=== PATIENT | female | born 1955 | race Caucasian/White ===

== ENCOUNTER 2024-04-12 18:15 | Inpatient (IN) | payer OTHER ==
[~2024-04-12] VITALS: Ht 162.6 cm; Wt 94.3 kg
[2024-04-12] MEDS ORDERED: GLIPIZIDE ER5 MG PO (18:34)
[2024-04-12] MEDS ORDERED: METFORMIN HCL1000 M3 PO (18:34)
[2024-04-12] MEDS ORDERED: COZAAR25 MG (18:34)
[2024-04-12] MEDS ORDERED: NEURONTIN300 MG (18:35)
[2024-04-12 21:09] LABS: HEMATOCRIT 40.6 % (36.0-45.00); HEMOGLOBIN 13.8 g/dL (12.0-15.00); MEAN CELL VOLUME 88.7 fL (80.00-100.00); MEAN CORPUSCULAR HEMOGLOBIN 30.1 pg (27.00-32.0); RED BLOOD COUNT 4.58 M/uL (4.00-6.00); RED CELL DISTRIBUTION WIDTH 17.2 % (11.5-14.5)
[2024-04-12 21:10] LABS: PLATELET COUNT 67 K/uL (150-450)
[2024-04-12 21:34] LABS: CALCIUM 9.5 mg/dL (8.5-10.1); CREATININE SERUM 2.16 mg/dL (0.55-1.02); GFR 22.67
[2024-04-12 21:37] LABS: POTASSIUM 6.64 mEq/L (3.5-5.1)
[2024-04-12 21:59] LABS: URINE APPEARANCE Clear; URINE BILIRRUBIN Negative (NEGATIVE); URINE BLOOD Negative; URINE COLOR Yellow; URINE GLUCOSE Negative (NEGATIVE); URINE KETONE Negative (NEGATIVE); URINE LEUKOCYTE Trace; URINE NITRATE Negative; URINE PROTEIN Negative (NEGATIVE); URINE UROBILINOGEN 0.2 E.U./dl
[2024-04-12 22:02] LABS: URINE BACTERIA 418.2 uL (0.0-1933); URINE RBC 6.2 uL (0.0-20.8)
[2024-04-12] MEDS ORDERED: SODIUM POLYSTYRENE SULFONATE 30G/8 TSP PO STA (22:08)
[2024-04-12] MEDS ORDERED: 0.9 % SODIUM CHLORIDE 1,000 ML IV STA (22:47)
[2024-04-12] MEDS ORDERED: CEFTRIAXONE SODIUM 2,000 MG in 0.9 % SODIUM CHLORIDE 100 ML IV SCH (23:26)
[2024-04-12] MEDS ORDERED: INSULIN LISPRO 1,000 UNIT/10 ML UNITS SUBCUTANEO PRN (23:30)
[2024-04-12] MEDS ORDERED: ACETAMINOPHEN 500 MG GEL..CAP PO PRN (23:30)
[2024-04-12] MEDS ORDERED: ONDANSETRON HCL 4 MG in 0.9 % SODIUM CHLORIDE 50 ML IV PRN (23:30)
[2024-04-12] MEDS ORDERED: DEXTROSE 50 % IN WATER 0.5 G/ML DISP.SYRIN IV PRN (23:30)
[2024-04-12] MEDS ORDERED: 0.9 % SODIUM CHLORIDE 1,000 ML IV SCH (23:30)
[2024-04-12] MEDS ORDERED: CEFTRIAXONE SODIUM 2,000 MG in 0.9 % SODIUM CHLORIDE 100 ML IV ONE (23:30)
[2024-04-12] MEDS ORDERED: CEFTRIAXONE SODIUM 2,000 MG VIAL ONE (23:56)
[2024-04-13] MEDS ORDERED: SODIUM POLYSTYRENE SULFONATE 30G/8 TSP PO SCH (01:00)
[2024-04-13 01:43] VITALS: BP 105/67; O2SAT 100
[2024-04-13 02:23] LABS: INR 1.21; PARTIAL THROMBOPLASTIN TIME 26.9 SECONDS (22.0-34.0)
[2024-04-13 03:50] VITALS: BP 98/63; O2SAT 96
[2024-04-13 07:10] LABS: ALBUMIN 2.5 gm/dL (3.4-5.0); BILIRUBIN TOTAL 0.76 mg/dL (0.3-1.2); BILIRUBIN,CONJUGATED 0.34 mg/dL (0.0-0.2); BILIRUBIN,UNCONJUGATED 0.42 mg/dL (0.0-0.6); CALCIUM 8.8 mg/dL (8.5-10.1); CHOL HDL RATIO 1.9 (0-5.0); CREATININE SERUM 1.8 mg/dL (0.55-1.02); GFR 27.98; GLOBULINA 3.4 G/DL (2.4-3.5); TOTAL PROTEIN 5.9 gm/dL (6.4-8.2)
[2024-04-13 07:12] LABS: POTASSIUM 5.89 mEq/L (3.5-5.1); TSH 1.61 uIU/mL (0.358-3.74)
[2024-04-13 08:51] VITALS: BP 118/77; O2SAT 97
[2024-04-13] MEDS ORDERED: SODIUM POLYSTYRENE SULFONATE 15 G/4 TSP TSP PO SCH (09:00)
[2024-04-13] MEDS ORDERED: ENOXAPARIN SODIUM 30 MG/0.3 ML SYRINGE SUBCUTANEO SCH (09:00)
[2024-04-13] MEDS ORDERED: FAMOTIDINE/PF 20 MG in 0.9 % SODIUM CHLORIDE 8 ML IV PUSH SCH (09:00)
[2024-04-13] MEDS ORDERED: PANTOPRAZOLE SODIUM 40 MG/VIAL VIAL IV SCH (09:00)
[2024-04-13] MEDS ORDERED: GABAPENTIN 800 MG TABLET PO SCH (09:00)
[2024-04-13] MEDS ORDERED: RINGERS SOLUTION,LACTATED 1,000 ML IV SCH (11:00)
[2024-04-13] MEDS ORDERED: DEXTROSE 5 % AND 0.9 % NACL 1,000 ML IV SCH ×2 (15:15)
[2024-04-13 17:40] VITALS: BP 145/72; O2SAT 98
[2024-04-14 01:51] VITALS: BP 101/67; O2SAT 99
[2024-04-14 08:11] LABS: HEMATOCRIT 37.7 % (36.0-45.00); HEMOGLOBIN 12.6 g/dL (12.0-15.00); MEAN CELL VOLUME 89.9 fL (80.00-100.00); MEAN CORPUSCULAR HGB CONC 33.4 g/dl (32.0-36.0); RED BLOOD COUNT 4.19 M/uL (4.00-6.00); RED CELL DISTRIBUTION WIDTH 17.1 % (11.5-14.5)
[2024-04-14 08:27] LABS: PLATELET COUNT 66 K/uL (150-450)
[2024-04-14 08:32] LABS: ALBUMIN 2.5 gm/dL (3.4-5.0); BILIRUBIN TOTAL 0.73 mg/dL (0.3-1.2); CALCIUM 8.7 mg/dL (8.5-10.1); CREATININE SERUM 1.48 mg/dL (0.55-1.02); GFR 35.07; GLOBULINA 3.6 G/DL (2.4-3.5); POTASSIUM 5.9 mEq/L (3.5-5.1); TOTAL PROTEIN 6.1 gm/dL (6.4-8.2)
[2024-04-14 08:33] LABS: CHOL HDL RATIO 2.2 (0-5.0)
[2024-04-14 09:15] VITALS: BP 113/63; O2SAT 99
[2024-04-14] MEDS ORDERED: LACTULOSE 20 G/30 ML BLIST.PACK PO SCH (17:00)
[2024-04-14 17:43] VITALS: BP 136/75; O2SAT 97
[2024-04-15 01:11] VITALS: BP 135/65; O2SAT 98
[2024-04-15 07:31] LABS: CREATININE SERUM 1.04 mg/dL (0.55-1.02); GFR 52.7; POTASSIUM 4.68 mEq/L (3.5-5.1)
[2024-04-15 09:00] VITALS: BP 157/80; O2SAT 97
[2024-04-15 17:25] VITALS: BP 130/73; O2SAT 97
[2024-04-15 18:55] LABS: FERRITIN 98.4 NG/ML (8-252)
[2024-04-15 19:07] LABS: URIC ACID 6.9 mg/dL (2.5-7.5)
[2024-04-16 01:19] VITALS: BP 120/68; O2SAT 100
[2024-04-16 06:45] LABS: HEMATOCRIT 34.4 % (36.0-45.00); HEMOGLOBIN 11.7 g/dL (12.0-15.00); MEAN CORPUSCULAR HEMOGLOBIN 30.5 pg (27.00-32.0); MEAN CORPUSCULAR HGB CONC 33.9 g/dl (32.0-36.0); RED BLOOD COUNT 3.82 M/uL (4.00-6.00); RED CELL DISTRIBUTION WIDTH 17.2 % (11.5-14.5)
[2024-04-16 06:49] LABS: ALBUMIN 2.3 gm/dL (3.4-5.0); BILIRUBIN TOTAL 1.02 mg/dL (0.3-1.2); CALCIUM 8.1 mg/dL (8.5-10.1); CREATININE SERUM 0.97 mg/dL (0.55-1.02); GFR 57.11; GLOBULINA 2.9 G/DL (2.4-3.5); MAGNESIUM 1.5 mg/dL (1.8-2.4); POTASSIUM 4.04 mEq/L (3.5-5.1); TOTAL PROTEIN 5.2 gm/dL (6.4-8.2)
[2024-04-16 07:02] LABS: PLATELET COUNT 51 K/uL (150-450)
[2024-04-16 08:41] VITALS: BP 129/70; O2SAT 98
[2024-04-16] MEDS ORDERED: MAGNESIUM SULFATE IN WATER 50 ML IV NR (13:00)
[2024-04-16] MEDS ORDERED: AMINO ACIDS 1 EACH TABLET PO SCH (13:00)
[2024-04-16] MEDS ORDERED: FERREX 150 FOR1 EAC1 PO (13:50)
[2024-04-16] MEDS ORDERED: GABAPENTIN800 MG PO (13:50)
[2024-04-17] MEDS ORDERED: IRON/V.C/V.B12/FOLIC A/VIT. E 1 CAPL CAPLET PO SCH (09:00)
[2024-04-17] MEDS ORDERED: MAGNESIUM CHLORIDE 70 MG TABLET.DR PO SCH (09:00)
[2024-04-18 12:09] LABS: HEPATITIS B CORE IGG Negative (Negative); HEPATITIS B CORE IGM Negative (Negative); HEPATITIS B SURFACE ANTIBODY Non Reactive (.); HEPATITIS C VIRUS ANTIBODY Non Reactive (Non Reactive)
== END 2024-04-16 14:47 | disposition home or self-care (01) | DRG 684 ==
LOC: ER 18:15 → MEDI 23:28
PROVIDERS: Emergency Medicine; General Practice; Internal Medicine; Internal Medicine Infectious Disease; Internal Medicine Nephrology; ADMIT Internal Medicine; ATTEND Internal Medicine
PROC: BW21ZZZ Computerized Tomography (CT Scan) of Abdomen and Pelvis (ICD-10-PCS; principal; 2024-04-12)
PROC: BW40ZZZ Ultrasonography of Abdomen (ICD-10-PCS; 2024-04-15)
DX: N17.9 Acute kidney failure, unspecified (principal); E87.5 Hyperkalemia; D69.6 Thrombocytopenia, unspecified; E11.9 Type 2 diabetes mellitus without complications; Z79.4 Long term (current) use of insulin

== ENCOUNTER 2024-09-06 10:48 | Outpatient (CLI) | payer OTHER | END 2024-09-06 10:57 | disposition home or self-care (01) | LOC: RAD 10:48 | PROVIDERS: ATTEND Orthopaedic Surgery | DX: M54.50 Low back pain, unspecified (principal); S42.224A 2-part nondisplaced fracture of surgical neck of right humerus, initial encounter for closed fracture; X58.XXXA Exposure to other specified factors, initial encounter; Y93.9 Activity, unspecified; Y92.9 Unspecified place or not applicable; Y99.9 Unspecified external cause status ==

== ENCOUNTER → 2024-09-06 | Emergency (ER) | payer OTHER ==
[~2024-09-06] MED LIST: COZAAR25 MG; FERREX 150 FOR1 EAC1 PO; GABAPENTIN800 MG PO; GLIPIZIDE ER5 MG PO; METFORMIN HCL1000 M3 PO; NEURONTIN300 MG
== END | disposition home or self-care (01) ==
LOC: ER 10:15
DX: S42.211A Unspecified displaced fracture of surgical neck of right humerus, initial encounter for closed fracture (principal); W18.39XA Other fall on same level, initial encounter; Y93.89 Activity, other specified; Y92.89 Other specified places as the place of occurrence of the external cause; I10 Essential (primary) hypertension; N20.0 Calculus of kidney

== ENCOUNTER → 2024-09-07 08:04 | Outpatient (CLI) | payer OTHER ==
[2024-09-07 09:02] LABS: MEAN CELL VOLUME 96.2 fL (80.00-100.00); MEAN CORPUSCULAR HGB CONC 32.8 g/dl (32.0-36.0); RED BLOOD COUNT 3.12 M/uL (4.00-6.00); RED CELL DISTRIBUTION WIDTH 14.7 % (11.5-14.5)
[2024-09-07 09:10] LABS: PLATELET COUNT 62 K/uL (150-450)
[2024-09-07 09:13] LABS: INR 1.19; PARTIAL THROMBOPLASTIN TIME 33.7 SECONDS (22.0-34.0); PROTHROMBIN TIME 12.8 SECONDS (9.0-11.5)
[2024-09-07 09:16] LABS: PH,URINE 5.5 (5.0-8.0); URINE APPEARANCE Cloudy; URINE BILIRRUBIN Negative (NEGATIVE); URINE BLOOD Moderate; URINE COLOR Dark Yellow; URINE GLUCOSE Negative (NEGATIVE); URINE KETONE Negative (NEGATIVE); URINE LEUKOCYTE Large; URINE NITRATE Positive; URINE PROTEIN Trace (NEGATIVE)
[2024-09-07 09:19] LABS: URINE EPITHELIAL CELLS 19.9 uL (0.0-38.8); URINE RBC 74.8 uL (0.0-20.8); URINE WBC 3295.6 uL (0.0-23.2)
[2024-09-07 09:22] LABS: ALBUMIN 2.8 gm/dL (3.4-5.0); BILIRUBIN TOTAL 1.1 mg/dL (0.3-1.2); CALCIUM 8.9 mg/dL (8.5-10.1); CREATININE SERUM 1.93 mg/dL (0.55-1.02); GFR 25.82; GLOBULINA 3.8 G/DL (2.4-3.5); TOTAL PROTEIN 6.6 gm/dL (6.4-8.2)
[2024-09-07 09:32] LABS: URINE BACTERIA > 9821.5 uL (0.0-1933); URINE CAST 1.17 uL (0.0-1.40)
[2024-09-07 10:08] LABS: COL ADP >300 SECONDS (56-102)
[2024-09-07 10:12] LABS: COL EPI >271 SECONDS (82-175)
[2024-09-07 10:29] LABS: POTASSIUM 6.51 mEq/L (3.5-5.1)
== END | disposition home or self-care (01) ==
LOC: EKG 08:04 → LAB 08:04
PROVIDERS: ATTEND Orthopaedic Surgery
DX: E56.1 Deficiency of vitamin K (principal); D64.9 Anemia, unspecified; E88.89 Other specified metabolic disorders; N39.0 Urinary tract infection, site not specified; Z22.322 Carrier or suspected carrier of Methicillin resistant Staphylococcus aureus; E11.9 Type 2 diabetes mellitus without complications; I10 Essential (primary) hypertension

== ENCOUNTER 2024-09-07 09:21 | Outpatient (CLI) | payer OTHER | END 2024-09-07 09:34 | disposition home or self-care (01) | LOC: TOM 09:21 | PROVIDERS: ATTEND Orthopaedic Surgery | DX: M54.50 Low back pain, unspecified (principal) ==

== ENCOUNTER 2024-09-07 16:28 | Inpatient (IN) | payer OTHER ==
[~2024-09-07] VITALS: Ht 162.6 cm; Wt 92.1 kg
--- NOTE | 2024-09-07 16:46 | NUR ---
PTE ALERTA,ESTABLE Y ORIENTADA.ESTA LLEGA CON REFERIDO DEL DR.COLLAZO SCHAFER POR FRACTURA EN EL HOMBRO DERECHO.
[2024-09-07] MEDS ORDERED: CALCIUM GLUCONATE 100 MG/ML VIAL IV ONE (17:45)
[2024-09-07] MEDS ORDERED: CALCIUM GLUCONATE 100 MG/ML VIAL ONE (17:52)
[2024-09-07] MEDS ORDERED: TRAMADOL HCL 50 MG TABLET PO ONE (18:00)
--- NOTE | 2024-09-07 18:42 | NUR ---
SE ORIENTA PTE SOBRE TX MEDICO EL CUAL REFIERE ENTENDER.SE LE EXTRAEN MUESTRAS BAJO MEDIDAS ASEPTICAS,SE CANALIZA Y SE ADMINISTRAN MEDICAMENTOS [facility]DEN MEDICA.
[2024-09-07 18:51] LABS: HEMOGLOBIN 10.9 g/dL (12.0-15.00); MEAN CELL VOLUME 94.5 fL (80.00-100.00); MEAN CORPUSCULAR HGB CONC 33.9 g/dl (32.0-36.0); PLATELET COUNT 77 K/uL (150-450); RED BLOOD COUNT 3.39 M/uL (4.00-6.00); RED CELL DISTRIBUTION WIDTH 15.2 % (11.5-14.5)
[2024-09-07 18:59] LABS: INR 1.12; PARTIAL THROMBOPLASTIN TIME 31.5 SECONDS (22.0-34.0); PROTHROMBIN TIME 12.1 SECONDS (9.0-11.5)
[2024-09-07 19:04] LABS: ALBUMIN 3.1 gm/dL (3.4-5.0); BILIRUBIN TOTAL 1.26 mg/dL (0.3-1.2); CALCIUM 8.7 mg/dL (8.5-10.1); CREATININE SERUM 2.06 mg/dL (0.55-1.02); GFR 23.95; GLOBULINA 3.8 G/DL (2.4-3.5); MAGNESIUM 1.8 mg/dL (1.8-2.4); PHOSPHOROUS 4.8 mg/dL (2.5-4.9); TOTAL PROTEIN 6.9 gm/dL (6.4-8.2)
[2024-09-07 19:19] LABS: POTASSIUM 6.07 mEq/L (3.5-5.1)
[2024-09-07] MEDS ORDERED: SODIUM POLYSTYRENE SULFONATE 30G/8 TSP PO STA (21:25)
[2024-09-07] MEDS ORDERED: DEXTROSE 50 % IN WATER 0.5 G/ML DISP.SYRIN IV PRN (21:30)
[2024-09-07] MEDS ORDERED: INSULIN LISPRO 1,000 UNIT/10 ML UNITS SUBCUTANEO PRN (21:30)
[2024-09-07] MEDS ORDERED: 0.9 % SODIUM CHLORIDE 1,000 ML IV SCH (21:30)
[2024-09-07] MEDS ORDERED: FUROsemide 20 MG/2 ML VIAL IV PRN (21:30)
[2024-09-07] MEDS ORDERED: ENALAPRILAT DIHYDRATE 1.25 MG/ML VIAL IV PRN (22:00)
[2024-09-07] MEDS ORDERED: MORPHINE SULFATE 2 MG/ML CARTRIDGE IV PRN (22:00)
[2024-09-07 23:30] VITALS: BP 126/68; O2SAT 100
[2024-09-08] MEDS ORDERED: SODIUM POLYSTYRENE SULFONATE 30G/8 TSP PO SCH (01:00)
[2024-09-08 02:24] LABS: PH,URINE 5.5 (5.0-8.0); URINE APPEARANCE Turbid; URINE BILIRRUBIN Negative (NEGATIVE); URINE BLOOD Small; URINE COLOR Yellow; URINE GLUCOSE Negative (NEGATIVE); URINE KETONE Negative (NEGATIVE); URINE LEUKOCYTE Large; URINE NITRATE Positive; URINE PROTEIN Trace (NEGATIVE)
[2024-09-08 02:27] LABS: URINE EPITHELIAL CELLS 11.2 uL (0.0-38.8); URINE RBC 30.1 uL (0.0-20.8); URINE WBC 3124.6 uL (0.0-23.2)
[2024-09-08 02:48] LABS: URINE BACTERIA > 9821.5 uL (0.0-1933); URINE CAST 0.29 uL (0.0-1.40)
[2024-09-08 04:14] VITALS: BP 116/44; O2SAT 100
[2024-09-08 07:35] LABS: HEMATOCRIT 29.9 % (36.0-45.00); HEMOGLOBIN 10.3 g/dL (12.0-15.00); MEAN CORPUSCULAR HEMOGLOBIN 32.8 pg (27.00-32.0); MEAN CORPUSCULAR HGB CONC 34.5 g/dl (32.0-36.0); RED BLOOD COUNT 3.15 M/uL (4.00-6.00); RED CELL DISTRIBUTION WIDTH 15.2 % (11.5-14.5)
[2024-09-08 07:43] LABS: PLATELET COUNT 63 K/uL (150-450)
[2024-09-08 07:52] LABS: BILIRUBIN TOTAL 1.22 mg/dL (0.3-1.2); CREATININE SERUM 1.91 mg/dL (0.55-1.02); GFR 26.13; GLOBULINA 3.5 G/DL (2.4-3.5); MAGNESIUM 1.8 mg/dL (1.8-2.4); TOTAL PROTEIN 6.5 gm/dL (6.4-8.2)
[2024-09-08 08:00] VITALS: BP 119/71
[2024-09-08 09:00] LABS: POTASSIUM 6.61 mEq/L (3.5-5.1)
[2024-09-08] MEDS ORDERED: PANTOPRAZOLE SODIUM 40 MG/VIAL VIAL IV SCH (09:00)
[2024-09-08] MEDS ORDERED: SODIUM POLYSTYRENE SULFONATE 30G/8 TSP PO NR (10:00)
[2024-09-08] MEDS ORDERED: CALCIUM GLUCONATE 100 MG/ML VIAL IV STA (11:16)
[2024-09-08] MEDS ORDERED: INSULIN REGULAR, HUMAN 1,000 UNIT/10 ML UNITS IV STA (11:17)
[2024-09-08] MEDS ORDERED: DEXTROSE 50 % IN WATER 0.5 G/ML VIAL IV STA (11:18)
[2024-09-08] MEDS ORDERED: ALBUTEROL SULFATE 0.5 ML/2.5 MG SOLUTION IH ONE (11:45)
[2024-09-08] MEDS ORDERED: CEFTRIAXONE SODIUM 2,000 MG VIAL IV SCH (12:00)
[2024-09-08] MEDS ORDERED: ALBUTEROL SULFATE 3 ML/2.5 MG AMPUL.NEB IH ONE (13:34)
[2024-09-08 16:56] VITALS: BP 98/50; O2SAT 97
[2024-09-08] MEDS ORDERED: SODIUM POLYSTYRENE SULFONATE 15 G/4 TSP TSP PO SCH (17:00)
[2024-09-09] VITALS: BP 126/55; O2SAT 100
[2024-09-09 08:00] VITALS: BP 144/73; O2SAT 99
[2024-09-09] MEDS ORDERED: CHLORHEXIDINE GLUCONATE 240 ML BOTTLE TOP SCH (13:04)
[2024-09-09 13:43] LABS: ABG PH 7.345 (7.35-7.45); ABG PO2 121.6 mmHg (80-100); ABG pCO2 25.1 mmHg (35-45); BASE EXCESS -10.3 mmol/l; BICARBONATE 13.4 mmol/l (23-25); SaO2 98.3 %; Tco2 14.2 mmol/l
[2024-09-09 15:11] LABS: HEMATOCRIT 30.4 % (36.0-45.00); HEMOGLOBIN 10.4 g/dL (12.0-15.00); MEAN CELL VOLUME 94.3 fL (80.00-100.00); MEAN CORPUSCULAR HEMOGLOBIN 32.3 pg (27.00-32.0); MEAN CORPUSCULAR HGB CONC 34.3 g/dl (32.0-36.0); RED BLOOD COUNT 3.22 M/uL (4.00-6.00); RED CELL DISTRIBUTION WIDTH 14.6 % (11.5-14.5)
[2024-09-09 15:20] LABS: PLATELET COUNT 97 K/uL (150-450)
[2024-09-09 15:27] LABS: ERYTHROCYTE SEDIMENTATION RATE 71 mm/hr
[2024-09-09 15:33] LABS: ALBUMIN 2.7 gm/dL (3.4-5.0); CALCIUM 8.6 mg/dL (8.5-10.1); CREATININE SERUM 1.62 mg/dL (0.55-1.02); GFR 31.6; GLOBULINA 3.4 G/DL (2.4-3.5); MAGNESIUM 1.6 mg/dL (1.8-2.4); PHOSPHOROUS 3.6 mg/dL (2.5-4.9); POTASSIUM 5.87 mEq/L (3.5-5.1); TOTAL PROTEIN 6.1 gm/dL (6.4-8.2)
[2024-09-09 15:34] LABS: o2 21 %
[2024-09-09 15:35] LABS: allen test SATISFACTORY; puncture site RADIAL LEFT
[2024-09-09] MEDS ORDERED: SODIUM POLYSTYRENE SULFONATE 30G/8 TSP PO STA (15:55)
[2024-09-09] MEDS ORDERED: DILTIAZEM HCL 120 MG TABLET PO NR (16:00)
[2024-09-09 16:38] VITALS: BP 129/63; O2SAT 98
[2024-09-09] MEDS ORDERED: EMOLLIENTS 6 OZ BOTTLE TOP SCH (17:00)
[2024-09-10] VITALS: BP 104/50; O2SAT 100
[2024-09-10 07:00] LABS: HEMATOCRIT 32.7 % (36.0-45.00); HEMOGLOBIN 10.9 g/dL (12.0-15.00); MEAN CELL VOLUME 93.4 fL (80.00-100.00); MEAN CORPUSCULAR HEMOGLOBIN 31.3 pg (27.00-32.0); MEAN CORPUSCULAR HGB CONC 33.5 g/dl (32.0-36.0)
[2024-09-10 07:23] LABS: PLATELET COUNT 88 K/uL (150-450)
[2024-09-10 07:26] LABS: ALBUMIN 2.5 gm/dL (3.4-5.0); BILIRUBIN TOTAL 1.76 mg/dL (0.3-1.2); CALCIUM 8.7 mg/dL (8.5-10.1); CREATININE SERUM 1.29 mg/dL (0.55-1.02); GFR 41.1; GLOBULINA 3.2 G/DL (2.4-3.5); MAGNESIUM 1.8 mg/dL (1.8-2.4); PHOSPHOROUS 3.3 mg/dL (2.5-4.9); TOTAL PROTEIN 5.7 gm/dL (6.4-8.2)
[2024-09-10 07:29] LABS: POTASSIUM 5.21 mEq/L (3.5-5.1)
[2024-09-10 08:39] VITALS: BP 129/65; O2SAT 98
[2024-09-10] MEDS ORDERED: CHLORHEXIDINE GLUCONATE 120 ML BOTTLE TOP SCH (09:00)
[2024-09-10] MEDS ORDERED: DILTIAZEM HCL 120 MG TABLET PO SCH ×2 (09:00)
[2024-09-10 17:08] VITALS: BP 110/63; O2SAT 100
[2024-09-10 19:11] LABS: PH,URINE 5.5 (5.0-8.0); URINE APPEARANCE Clear; URINE BILIRRUBIN Negative (NEGATIVE); URINE BLOOD Moderate; URINE COLOR Yellow; URINE GLUCOSE Negative (NEGATIVE); URINE KETONE 15 (NEGATIVE); URINE LEUKOCYTE Moderate; URINE NITRATE Negative; URINE PROTEIN 30 (NEGATIVE)
[2024-09-10 19:12] LABS: URINE BACTERIA 149.3 uL (0.0-1933); URINE EPITHELIAL CELLS 2.6 uL (0.0-38.8); URINE RBC 261.3 uL (0.0-20.8); URINE WBC 634.1 uL (0.0-23.2)
[2024-09-10 19:14] LABS: URINE CAST 0.14 uL (0.0-1.40)
[2024-09-11 00:30] VITALS: BP 138/77; O2SAT 96
[2024-09-11 08:00] VITALS: BP 119/73; O2SAT 97
[2024-09-11 08:19] LABS: MEAN CELL VOLUME 91.6 fL (80.00-100.00); RED BLOOD COUNT 3.28 M/uL (4.00-6.00); RED CELL DISTRIBUTION WIDTH 15.6 % (11.5-14.5)
[2024-09-11 08:22] LABS: HEMOGLOBIN 10.5 g/dL (12.0-15.00)
[2024-09-11 09:10] LABS: PLATELET COUNT 83 K/uL (150-450)
[2024-09-11] MEDS ORDERED: CEFTRIAXONE SODIUM 2,000 MG VIAL IV ONE (13:30)
[2024-09-11] MEDS ORDERED: BUPIVACAINE HCL 30 ML VIAL IJ ONE (13:30)
[2024-09-11] MEDS ORDERED: TRANEXAMIC ACID 100MG/1ML (1000MG) AMPUL IV ONE ×2 (13:30)
[2024-09-11] MEDS ORDERED: MORPHINE SULFATE 4 MG/ML VIAL IV ONE (14:50)
[2024-09-11 18:55] VITALS: BP 147/81; O2SAT 95
[2024-09-11 19:19] LABS: COL EPI 122 SECONDS (82-175)
[2024-09-12 00:05] VITALS: BP 141/77; O2SAT 96
[2024-09-12 08:00] VITALS: BP 111/73; O2SAT 99
[2024-09-12] MEDS ORDERED: DILTIAZEM HCL 120 MG CAP.SR.24H PO SCH (09:00)
[2024-09-12 09:01] LABS: HEMATOCRIT 34.4 % (36.0-45.00); HEMOGLOBIN 11.2 g/dL (12.0-15.00); MEAN CELL VOLUME 95.5 fL (80.00-100.00); MEAN CORPUSCULAR HEMOGLOBIN 31.1 pg (27.00-32.0); MEAN CORPUSCULAR HGB CONC 32.6 g/dl (32.0-36.0); RED CELL DISTRIBUTION WIDTH 15.8 % (11.5-14.5)
[2024-09-12 09:41] LABS: PLATELET COUNT 98 K/uL (150-450)
[2024-09-12 18:49] VITALS: BP 129/72; O2SAT 96
[2024-09-13 00:47] VITALS: BP 114/62; O2SAT 95
[2024-09-13 07:53] LABS: ALBUMIN 2.2 gm/dL (3.4-5.0); BILIRUBIN TOTAL 1.16 mg/dL (0.3-1.2); CALCIUM 8.5 mg/dL (8.5-10.1); CREATININE SERUM 0.93 mg/dL (0.55-1.02); GFR 59.95; GLOBULINA 3.1 G/DL (2.4-3.5); POTASSIUM 4.37 mEq/L (3.5-5.1); TOTAL PROTEIN 5.3 gm/dL (6.4-8.2)
[2024-09-13 08:00] VITALS: BP 132/80; O2SAT 95
[2024-09-13 08:18] LABS: HEMATOCRIT 31.8 % (36.0-45.00); HEMOGLOBIN 10.6 g/dL (12.0-15.00); MEAN CORPUSCULAR HEMOGLOBIN 31.5 pg (27.00-32.0); MEAN CORPUSCULAR HGB CONC 33.2 g/dl (32.0-36.0); RED BLOOD COUNT 3.35 M/uL (4.00-6.00); RED CELL DISTRIBUTION WIDTH 15.4 % (11.5-14.5)
[2024-09-13] MEDS ORDERED: PANTOPRAZOLE SODIUM 40 MG TABLET.DR PO SCH (09:00)
[2024-09-13 09:09] LABS: PLATELET COUNT 85 K/uL (150-450)
[2024-09-13] MEDS ORDERED: OxyCODONE HCL/APAP UD (PERCOCET) PO PRN (10:30)
[2024-09-13 16:00] VITALS: BP 113/64; O2SAT 98
[2024-09-13] MEDS ORDERED: DOCUSATE SODIUM 100MG CAP PO SCH (17:00)
[2024-09-13] MEDS ORDERED: DILTIAZEM ER120 M2 PO (17:12)
[2024-09-13] MEDS ORDERED: OXYC1TAB9 PO (17:12)
[2024-09-13] MEDS ORDERED: INTEGRA PLUS C1 EACH PO (17:13)
[2024-09-13] MEDS ORDERED: GLUMETZA1000 MG PO (17:13)
[2024-09-13] MEDS ORDERED: DOCUSATE CALCI240 MG PO (17:13)
[2024-09-13] MEDS ORDERED: COZAAR50 MG PO (17:14)
== END 2024-09-13 19:07 | disposition home or self-care (01) | DRG 493 ==
LOC: ER 16:30 → SURG 22:06 → SURH 22:06 → SURG 23:35 → SURH 09-08 15:21
PROVIDERS: General Practice; Internal Medicine Infectious Disease; Orthopaedic Surgery; ADMIT Internal Medicine; ATTEND Internal Medicine
PROC: 30233R1 Transfusion of Nonautologous Platelets into Peripheral Vein, Percutaneous Approach (ICD-10-PCS; 2024-09-08)
PROC: 30233N1 Transfusion of Nonautologous Red Blood Cells into Peripheral Vein, Percutaneous Approach (ICD-10-PCS; 2024-09-09)
PROC: 0PSC06Z Reposition Right Humeral Head with Intramedullary Internal Fixation Device, Open Approach (ICD-10-PCS; principal; 2024-09-12)
DX: S42.291A Other displaced fracture of upper end of right humerus, initial encounter for closed fracture (principal); D61.818 Other pancytopenia; N17.9 Acute kidney failure, unspecified; N39.0 Urinary tract infection, site not specified; E87.5 Hyperkalemia; D69.6 Thrombocytopenia, unspecified; S80.01XA Contusion of right knee, initial encounter; E11.65 Type 2 diabetes mellitus with hyperglycemia; E11.622 Type 2 diabetes mellitus with other skin ulcer; D72.819 Decreased white blood cell count, unspecified; I12.9 Hypertensive chronic kidney disease with stage 1 through stage 4 chronic kidney disease, or unspecified chronic kidney disease; E11.22 Type 2 diabetes mellitus with diabetic chronic kidney disease; N18.32 Chronic kidney disease, stage 3b; Z79.84 Long term (current) use of oral hypoglycemic drugs; B96.1 Klebsiella pneumoniae [K. pneumoniae] as the cause of diseases classified elsewhere; W19.XXXA Unspecified fall, initial encounter; Y92.9 Unspecified place or not applicable

== ENCOUNTER 2024-09-15 15:49 | Inpatient (IN) | payer OTHER ==
[~2024-09-15] VITALS: Ht 162.6 cm; Wt 94.8 kg
[~2024-09-15 15:49] MED LIST changes: +COZAAR50 MG PO; +DILTIAZEM ER120 M2 PO; +DOCUSATE CALCI240 MG PO; +GLUMETZA1000 MG PO; +INTEGRA PLUS C1 EACH PO; +OXYC1TAB9 PO
--- NOTE | 2024-09-15 16:00 | NUR ---
SE RECIBE PTE ALERTA Y ORIENTADA X3 EN AMBULANCIA EN COMPANIA DE FAMILIAR Y PAREMDICOS. LA MISMO REFIERE QUE JULIANNE FUE PARA EL JAMEE Y SE DESLIZO HASTA LLEGAR AL PISO Y HOY ESTA PRESENTADO DOLOR EL PIERNA DERECHA. SE MIDEN S/V Y SE UBICA.
--- NOTE | 2024-09-15 17:15 | NUR ---
SE NOTIFICAN XRAY PENDIENTE.
[2024-09-15] MEDS ORDERED: MEPERIDINE HCL 25 MG/ML AMPUL IV ONE (19:00)
[2024-09-15] MEDS ORDERED: GABAPENTIN 300 MG CAPSULE PO SCH (22:09)
[2024-09-15] MEDS ORDERED: 0.9 % SODIUM CHLORIDE 1,000 ML IV SCH (22:15)
[2024-09-15] MEDS ORDERED: DEXTROSE 50 % IN WATER 0.5 G/ML DISP.SYRIN IV PRN (22:15)
[2024-09-15] MEDS ORDERED: INSULIN LISPRO 1,000 UNIT/10 ML UNITS SUBCUTANEO PRN ×2 (22:15)
[2024-09-15] MEDS ORDERED: MORPHINE SULFATE 4 MG/ML CARTRIDGE IV PRN (22:15)
[2024-09-15] MEDS ORDERED: ACETAMINOPHEN 500 MG GEL..CAP PO PRN (23:00)
[2024-09-16 01:36] LABS: HEMATOCRIT 29.7 % (36.0-45.00); HEMOGLOBIN 10.3 g/dL (12.0-15.00); MEAN CELL VOLUME 93.6 fL (80.00-100.00); MEAN CORPUSCULAR HEMOGLOBIN 32.5 pg (27.00-32.0); MEAN CORPUSCULAR HGB CONC 34.7 g/dl (32.0-36.0); RED BLOOD COUNT 3.18 M/uL (4.00-6.00); RED CELL DISTRIBUTION WIDTH 15.6 % (11.5-14.5)
[2024-09-16 01:37] LABS: PLATELET COUNT 61 K/uL (150-450)
[2024-09-16 01:58] LABS: INR 1.3; PARTIAL THROMBOPLASTIN TIME 28.6 SECONDS (22.0-34.0); PROTHROMBIN TIME 13.9 SECONDS (9.0-11.5)
[2024-09-16 02:05] LABS: URINE APPEARANCE Clear; URINE BILIRRUBIN Negative (NEGATIVE); URINE BLOOD Negative; URINE COLOR Dark Yellow; URINE GLUCOSE Negative (NEGATIVE); URINE KETONE 15 (NEGATIVE); URINE LEUKOCYTE Small; URINE NITRATE Negative; URINE PROTEIN Trace (NEGATIVE)
[2024-09-16 02:09] LABS: URINE BACTERIA 70.9 uL (0.0-1933); URINE EPITHELIAL CELLS 35.1 uL (0.0-38.8); URINE RBC 13.9 uL (0.0-20.8); URINE WBC 56.8 uL (0.0-23.2)
[2024-09-16 02:15] LABS: URINE CAST 1.32 uL (0.0-1.40)
[2024-09-16 02:24] LABS: ALBUMIN 2.2 gm/dL (3.4-5.0); BILIRUBIN TOTAL 1.59 mg/dL (0.3-1.2); CALCIUM 8.5 mg/dL (8.5-10.1); CREATININE SERUM 1.06 mg/dL (0.55-1.02); GFR 51.55; GLOBULINA 3.1 G/DL (2.4-3.5); POTASSIUM 3.51 mEq/L (3.5-5.1); TOTAL PROTEIN 5.3 gm/dL (6.4-8.2)
[2024-09-16 02:28] LABS: COL ADP 105 SECONDS (56-102); COL EPI 144 SECONDS (82-175)
[2024-09-16] MEDS ORDERED: FUROsemide 20 MG/2 ML VIAL IV PRN (03:00)
[2024-09-16 04:00] VITALS: BP 122/62
[2024-09-16 09:00] VITALS: BP 110/54; O2SAT 98
[2024-09-16] MEDS ORDERED: PANTOPRAZOLE SODIUM 40 MG/VIAL VIAL IV SCH (09:00)
[2024-09-16] MEDS ORDERED: LOSARTAN POTASSIUM 50 MG TABLET PO SCH (09:00)
[2024-09-16] MEDS ORDERED: IRON FUM,PS/FOLIC ACID/VITC/B3 1 CAP CAPSULE PO SCH (09:00)
[2024-09-16] MEDS ORDERED: DILTIAZEM HCL 120 MG CAP.SR.24H PO SCH (09:00)
[2024-09-16 17:58] VITALS: BP 140/62; O2SAT 97
[2024-09-16] MEDS ORDERED: RINGERS SOLUTION,LACTATED 1,000 ML IV SCH (23:00)
[2024-09-17 02:24] VITALS: BP 126/51
[2024-09-17] MEDS ORDERED: AMINO ACIDS/PROTEIN HYDROLYS 30 ML BLIST.PACK PO SCH (09:00)
[2024-09-17 09:28] VITALS: BP 131/58; O2SAT 97
[2024-09-17 16:35] VITALS: BP 136/60; O2SAT 98
[2024-09-18 01:05] VITALS: BP 138/62; O2SAT 100
[2024-09-18 07:36] LABS: ALBUMIN 2.1 gm/dL (3.4-5.0); BILIRUBIN TOTAL 1.72 mg/dL (0.3-1.2); CALCIUM 8.4 mg/dL (8.5-10.1); CREATININE SERUM 0.94 mg/dL (0.55-1.02); GFR 59.22; GLOBULINA 3.1 G/DL (2.4-3.5); MAGNESIUM 1.5 mg/dL (1.8-2.4); PHOSPHOROUS 2.7 mg/dL (2.5-4.9); POTASSIUM 3.93 mEq/L (3.5-5.1); TOTAL PROTEIN 5.2 gm/dL (6.4-8.2)
[2024-09-18 08:13] LABS: HEMATOCRIT 36.3 % (36.0-45.00); HEMOGLOBIN 11.9 g/dL (12.0-15.00); MEAN CELL VOLUME 93.8 fL (80.00-100.00); MEAN CORPUSCULAR HEMOGLOBIN 30.8 pg (27.00-32.0); MEAN CORPUSCULAR HGB CONC 32.8 g/dl (32.0-36.0); RED BLOOD COUNT 3.87 M/uL (4.00-6.00); RED CELL DISTRIBUTION WIDTH 17.6 % (11.5-14.5)
[2024-09-18 08:20] LABS: PLATELET COUNT 135 K/uL (150-450)
[2024-09-18 09:15] VITALS: BP 124/54; O2SAT 95
[2024-09-18] MEDS ORDERED: MAGNESIUM SULFATE IN WATER 4 GM/100 ML PIGGYBACK IV NR (11:00)
[2024-09-18] MEDS ORDERED: TRANEXAMIC ACID 100MG/1ML (1000MG) AMPUL IV ONE (13:30)
[2024-09-18] MEDS ORDERED: CEFTRIAXONE SODIUM 2,000 MG VIAL ONE (14:28)
[2024-09-18] MEDS ORDERED: SODIUM CHLORIDE 0.45 % 1,000 ML IV SCH (17:15)
[2024-09-18] MEDS ORDERED: MORPHINE SULFATE 4 MG/ML VIAL IV ONE (19:55)
[2024-09-18] MEDS ORDERED: MORPHINE SULFATE 4 MG/ML CARTRIDGE IV PRN (23:00)
[2024-09-19 01:19] VITALS: BP 140/56; O2SAT 97
[2024-09-19 06:50] LABS: HEMATOCRIT 34.6 % (36.0-45.00); HEMOGLOBIN 11.6 g/dL (12.0-15.00); MEAN CELL VOLUME 93.5 fL (80.00-100.00); MEAN CORPUSCULAR HEMOGLOBIN 31.2 pg (27.00-32.0); MEAN CORPUSCULAR HGB CONC 33.4 g/dl (32.0-36.0); RED CELL DISTRIBUTION WIDTH 17.8 % (11.5-14.5)
[2024-09-19 07:10] LABS: PLATELET COUNT 130 K/uL (150-450)
[2024-09-19 07:35] LABS: ALBUMIN 2.3 gm/dL (3.4-5.0); BILIRUBIN TOTAL 2.21 mg/dL (0.3-1.2); CALCIUM 8.8 mg/dL (8.5-10.1); CREATININE SERUM 0.91 mg/dL (0.55-1.02); GFR 61.47; GLOBULINA 3.2 G/DL (2.4-3.5); POTASSIUM 3.59 mEq/L (3.5-5.1); TOTAL PROTEIN 5.5 gm/dL (6.4-8.2)
[2024-09-19] MEDS ORDERED: CEFTRIAXONE SODIUM 2,000 MG in 0.9 % SODIUM CHLORIDE 100 ML IV SCH (09:00)
[2024-09-19 09:22] VITALS: BP 169/91; O2SAT 97
[2024-09-19 17:09] VITALS: BP 140/52; O2SAT 98
[2024-09-20 01:13] VITALS: BP 145/55
[2024-09-20 08:59] VITALS: BP 128/51
[2024-09-20] MEDS ORDERED: DILTIAZEM HCL 120 MG CAP.SR.24H PO SCH (09:00)
[2024-09-20] MEDS ORDERED: PANTOPRAZOLE SODIUM 40 MG TABLET.DR PO SCH (09:00)
[2024-09-20 09:10] LABS: HEMATOCRIT 30.5 % (36.0-45.00); HEMOGLOBIN 10.2 g/dL (12.0-15.00); MEAN CELL VOLUME 92.1 fL (80.00-100.00); MEAN CORPUSCULAR HEMOGLOBIN 30.9 pg (27.00-32.0); MEAN CORPUSCULAR HGB CONC 33.5 g/dl (32.0-36.0); RED BLOOD COUNT 3.32 M/uL (4.00-6.00); RED CELL DISTRIBUTION WIDTH 17.9 % (11.5-14.5)
[2024-09-20 09:19] LABS: PLATELET COUNT 102 K/uL (150-450)
[2024-09-20] MEDS ORDERED: GLUMETZA1000 MG PO (15:22)
[2024-09-20] MEDS ORDERED: INTEGRA F CAPS1 EACH PO (15:22)
[2024-09-20] MEDS ORDERED: DILTIAZEM ER120 M2 PO (15:22)
[2024-09-20] MEDS ORDERED: COZAAR50 MG PO (15:23)
[2024-09-20] MEDS ORDERED: PROTEINEX-18 LI30 ML PO (15:23)
[2024-09-20] MEDS ORDERED: GABAPENTIN300 MG PO (15:23)
[2024-09-20] MEDS ORDERED: TRAM1TAB98 PO (15:24)
[2024-09-20] MEDS ORDERED: COLACE100 MG PO (15:24)
[2024-09-20 16:41] VITALS: BP 100/50; O2SAT 98
== END 2024-09-20 19:50 | disposition home or self-care (01) | DRG 481 ==
LOC: ER 15:49 → MEDI 22:25
PROVIDERS: Emergency Medicine; General Practice; Orthopaedic Surgery; ADMIT Internal Medicine; ATTEND Internal Medicine
PROC: 30233R1 Transfusion of Nonautologous Platelets into Peripheral Vein, Percutaneous Approach (ICD-10-PCS; 2024-09-16)
PROC: 30233N1 Transfusion of Nonautologous Red Blood Cells into Peripheral Vein, Percutaneous Approach (ICD-10-PCS; 2024-09-16)
PROC: 0QSB04Z Reposition Right Lower Femur with Internal Fixation Device, Open Approach (ICD-10-PCS; principal; 2024-09-18 13:30)
DX: S72.331A Displaced oblique fracture of shaft of right femur, initial encounter for closed fracture (principal); N17.9 Acute kidney failure, unspecified; D63.8 Anemia in other chronic diseases classified elsewhere; Z79.4 Long term (current) use of insulin; D69.6 Thrombocytopenia, unspecified; I12.9 Hypertensive chronic kidney disease with stage 1 through stage 4 chronic kidney disease, or unspecified chronic kidney disease; E11.22 Type 2 diabetes mellitus with diabetic chronic kidney disease; N18.32 Chronic kidney disease, stage 3b; W13.3XXA Fall through floor, initial encounter; Y93.01 Activity, walking, marching and hiking; Y92.002 Bathroom of unspecified non-institutional (private) residence as the place of occurrence of the external cause

== ENCOUNTER 2024-10-06 10:16 | Inpatient (IN) | payer OTHER ==
[~2024-10-06] VITALS: Ht 152.4 cm; Wt 130.6 kg
[~2024-10-06 10:16] MED LIST changes: +COLACE100 MG PO; +GABAPENTIN300 MG PO; +INTEGRA F CAPS1 EACH PO; +PROTEINEX-18 LI30 ML PO; +TRAM1TAB98 PO
--- NOTE | 2024-10-06 10:31 | NUR ---
SE RECIBE PACIENTE ALERTA Y ORIENTADA X 3 ESFERAS EN AMBULANCIA EN COMPANIA DE FAMILIAR EL CUAL INDICA QUE PACIENTE FUE OPERADA POR EL 09/18/24 DE UN FEMUR DERECHO. REFIERE QUE HACE DOS SEMANAS PACIENTE COMENZO CON FIEBRE Y FALTA DE APETITO. PACIENTE CON ULCERA SACRAL Y SHARIF DERECHO. SE OBSERVA SONDA URINARIA DRENANDO A GRAVEDAD.
[2024-10-06] MEDS ORDERED: PANTOPRAZOLE SODIUM 40 MG/VIAL VIAL IV PUSH ONE (11:30)
[2024-10-06] MEDS ORDERED: PIPERACILLIN/TAZOBACTAM SODIUM 2.25 GM VIAL IV ONE (11:30)
[2024-10-06] MEDS ORDERED: 0.9 % SODIUM CHLORIDE 1,000 ML IV ONE (11:30)
--- NOTE | 2024-10-06 11:41 | NUR ---
SE EDUCA A PACIENTE SOBRE TRATAMIENTO MEDICO EL CUAL REFIERE ENTENDER, SE REALIZA HARRY DE MUESTRAS BAJO MEDIDAS ASEPTICAS Y SE ADMINISTRA MEDICAMENTO [facility]DEN MEDICA.
--- NOTE | 2024-10-06 11:42 | NUR ---
SE INSERTA SONDA ORINARIA BAJO MEDIDAS ASEPTICAS Y ESTERILES [facility]DEN DE MEDICO EN [place].
[2024-10-06 13:06] LABS: URINE APPEARANCE Cloudy; URINE BILIRRUBIN Small (NEGATIVE); URINE BLOOD Moderate; URINE COLOR Dark Yellow; URINE GLUCOSE Negative (NEGATIVE); URINE KETONE Trace (NEGATIVE); URINE LEUKOCYTE Large; URINE NITRATE Positive; URINE PROTEIN Trace (NEGATIVE)
[2024-10-06 13:10] LABS: URINE CAST 6.33 uL (0.0-1.40); URINE EPITHELIAL CELLS 20.5 uL (0.0-38.8); URINE RBC 47.4 uL (0.0-20.8); URINE WBC 1110.3 uL (0.0-23.2)
[2024-10-06 13:15] LABS: HEMATOCRIT 36.6 % (36.0-45.00); MEAN CELL VOLUME 93.3 fL (80.00-100.00); MEAN CORPUSCULAR HEMOGLOBIN 30.6 pg (27.00-32.0); MEAN CORPUSCULAR HGB CONC 32.8 g/dl (32.0-36.0); PLATELET COUNT 150 K/uL (150-450); RED BLOOD COUNT 3.93 M/uL (4.00-6.00); RED CELL DISTRIBUTION WIDTH 19.8 % (11.5-14.5)
[2024-10-06 13:18] LABS: ERYTHROCYTE SEDIMENTATION RATE 98 mm/hr
[2024-10-06 13:27] LABS: INR 1.55
[2024-10-06 13:28] LABS: PARTIAL THROMBOPLASTIN TIME 39.8 SECONDS (22.0-34.0); PROTHROMBIN TIME 16.4 SECONDS (9.0-11.5)
[2024-10-06 13:31] LABS: BILIRUBIN TOTAL 4.14 mg/dL (0.3-1.2); CALCIUM 8.7 mg/dL (8.5-10.1); CREATININE SERUM 2.12 mg/dL (0.55-1.02); GFR 23.17; GLOBULINA 4.2 G/DL (2.4-3.5); POTASSIUM 5.88 mEq/L (3.5-5.1); TOTAL PROTEIN 6.2 gm/dL (6.4-8.2)
[2024-10-06 13:32] LABS: C-REACTIVE PROTEIN 21.6 MG/DL (0.00-0.29)
[2024-10-06 13:35] LABS: URINE BACTERIA > 9821.5 uL (0.0-1933)
[2024-10-06 13:36] LABS: URINE YEAST MODERATE /hpf
[2024-10-06] MEDS ORDERED: MORPHINE SULFATE 4 MG/ML VIAL IV ONE (14:00)
[2024-10-06] MEDS ORDERED: SODIUM POLYSTYRENE SULFONATE 30G/8 TSP PO STA (15:23)
[2024-10-06] MEDS ORDERED: DEXTROSE 50 % IN WATER 0.5 G/ML DISP.SYRIN IV PRN (15:45)
[2024-10-06] MEDS ORDERED: MORPHINE SULFATE 2 MG/ML SYRINGE IV PRN (15:45)
[2024-10-06] MEDS ORDERED: INSULIN LISPRO 1,000 UNIT/10 ML UNITS SUBCUTANEO PRN (15:45)
[2024-10-06] MEDS ORDERED: ACETAMINOPHEN 500 MG GEL..CAP PO PRN (15:45)
[2024-10-06] MEDS ORDERED: TRAMADOL HCL 50 MG TABLET PO PRN (15:45)
[2024-10-06] MEDS ORDERED: VANCOMYCIN HCL 1,000 MG VIAL IV SCH (16:17)
[2024-10-06] MEDS ORDERED: PIPERACILLIN/TAZOBACTAM SODIUM 3.375 GM VIAL IV SCH (17:00)
[2024-10-06 17:57] VITALS: BP 100/55; O2SAT 100
[2024-10-06] MEDS ORDERED: GABAPENTIN 600 MG TABLET PO SCH (19:13)
[2024-10-06] MEDS ORDERED: RINGERS SOLUTION,LACTATED 1,000 ML IV SCH (19:15)
[2024-10-06 19:53] VITALS: BP 104/71
[2024-10-07 02:28] VITALS: BP 131/70; O2SAT 97
[2024-10-07] MEDS ORDERED: ENOXAPARIN SODIUM 30 MG/0.3 ML SYRINGE SUBCUTANEO SCH (09:00)
[2024-10-07] MEDS ORDERED: PANTOPRAZOLE SODIUM 40 MG/VIAL VIAL IV SCH (09:00)
[2024-10-07] MEDS ORDERED: DOCUSATE SODIUM 100MG CAP PO SCH (09:00)
[2024-10-07] MEDS ORDERED: AMINO ACIDS/PROTEIN HYDROLYS 30 ML BLIST.PACK PO SCH (09:00)
[2024-10-07] MEDS ORDERED: IRON FUM,PS/FOLIC/BCOMP,C NO.9 1 CAP CAPSULE PO SCH (09:00)
[2024-10-07 09:58] VITALS: BP 132/76; O2SAT 97
[2024-10-07 11:18] LABS: HEMATOCRIT 36.9 % (36.0-45.00); HEMOGLOBIN 12.2 g/dL (12.0-15.00); MEAN CELL VOLUME 94.5 fL (80.00-100.00); MEAN CORPUSCULAR HEMOGLOBIN 31.3 pg (27.00-32.0); MEAN CORPUSCULAR HGB CONC 33.1 g/dl (32.0-36.0); RED BLOOD COUNT 3.91 M/uL (4.00-6.00)
[2024-10-07 11:58] LABS: PLATELET COUNT 77 K/uL (150-450)
[2024-10-07 20:06] VITALS: BP 90/50; O2SAT 98
[2024-10-07 21:54] LABS: ALBUMIN 1.6 gm/dL (3.4-5.0); BILIRUBIN TOTAL 3.55 mg/dL (0.3-1.2); CALCIUM 7.8 mg/dL (8.5-10.1); CREATININE SERUM 1.99 mg/dL (0.55-1.02); GFR 24.92; GLOBULINA 3.1 G/DL (2.4-3.5); MAGNESIUM 1.7 mg/dL (1.8-2.4); POTASSIUM 5.12 mEq/L (3.5-5.1); TOTAL PROTEIN 4.7 gm/dL (6.4-8.2)
[2024-10-08] VITALS (8 sets, daily range): BP systolic 73–119; BP diastolic 46–63; O2SAT 97
[2024-10-08] MEDS ORDERED: SODIUM HYPOCHLORITE 1OZ TOP SCH (09:00)
[2024-10-08] MEDS ORDERED: RINGERS SOLUTION,LACTATED 1,000 ML IV STA (11:00)
[2024-10-08] MEDS ORDERED: MAGNESIUM SULFATE IN WATER 50 ML IV NR (13:00)
[2024-10-08] MEDS ORDERED: CALCIUM CARBONATE/VITAMIN D3 1 TAB TABLET PO SCH (13:00)
[2024-10-08] MEDS ORDERED: SODIUM POLYSTYRENE SULFONATE 15 G/4 TSP TSP PO ONE (13:00)
[2024-10-08] MEDS ORDERED: 0.9 % SODIUM CHLORIDE 1,000 ML IV STA (19:33)
[2024-10-08] MEDS ORDERED: ALBUTEROL SULFATE 3 ML/2.5 MG AMPUL.NEB IH STA (20:12)
[2024-10-08] MEDS ORDERED: MELATONIN 5 MG TABLET PO SCH (23:00)
[2024-10-09] VITALS: BP 85/48
[2024-10-09] MEDS ORDERED: ALBUTEROL SULFATE 3 ML/2.5 MG AMPUL.NEB IH SCH
[2024-10-09 06:35] VITALS: BP 99/56
[2024-10-09 07:49] LABS: HEMATOCRIT 31.4 % (36.0-45.00); HEMOGLOBIN 10.5 g/dL (12.0-15.00); MEAN CELL VOLUME 93.1 fL (80.00-100.00); MEAN CORPUSCULAR HGB CONC 33.3 g/dl (32.0-36.0); RED BLOOD COUNT 3.38 M/uL (4.00-6.00); RED CELL DISTRIBUTION WIDTH 20.1 % (11.5-14.5)
[2024-10-09 07:52] LABS: PLATELET COUNT 75 K/uL (150-450)
[2024-10-09 08:05] LABS: ALBUMIN 1.5 gm/dL (3.4-5.0); BILIRUBIN TOTAL 2.98 mg/dL (0.3-1.2); CALCIUM 7.9 mg/dL (8.5-10.1); CREATININE SERUM 1.9 mg/dL (0.55-1.02); GFR 26.29; GLOBULINA 3.1 G/DL (2.4-3.5); POTASSIUM 5.83 mEq/L (3.5-5.1); TOTAL PROTEIN 4.6 gm/dL (6.4-8.2)
[2024-10-09 08:28] VITALS: BP 120/86; O2SAT 95
[2024-10-09] MEDS ORDERED: SODIUM POLYSTYRENE SULFONATE 30G/8 TSP PO STA (10:42)
[2024-10-09] MEDS ORDERED: MEROPENEM 500 MG/VIAL VIAL IV SCH (17:00)
[2024-10-09] MEDS ORDERED: SODIUM POLYSTYRENE SULFONATE 15 G/4 TSP TSP PO SCH (17:00)
[2024-10-09 18:07] VITALS: BP 100/55; O2SAT 98
[2024-10-10 01:14] VITALS: BP 88/54
[2024-10-10 06:49] VITALS: BP 103/67
[2024-10-10 08:41] VITALS: BP 106/60
[2024-10-10 17:06] VITALS: BP 92/62; O2SAT 98
[2024-10-11 00:55] VITALS: BP 107/75
[2024-10-11 08:43] VITALS: BP 130/89; O2SAT 94
[2024-10-11 15:43] LABS: ALBUMIN 1.5 gm/dL (3.4-5.0); BILIRUBIN TOTAL 3.11 mg/dL (0.3-1.2); CALCIUM 8.1 mg/dL (8.5-10.1); CREATININE SERUM 1.82 mg/dL (0.55-1.02); GFR 27.63; GLOBULINA 3.2 G/DL (2.4-3.5); PHOSPHOROUS 4.3 mg/dL (2.5-4.9); TOTAL PROTEIN 4.7 gm/dL (6.4-8.2)
[2024-10-11 16:11] LABS: HEMATOCRIT 28.6 % (36.0-45.00); HEMOGLOBIN 9.7 g/dL (12.0-15.00); MEAN CORPUSCULAR HEMOGLOBIN 31.4 pg (27.00-32.0); MEAN CORPUSCULAR HGB CONC 33.8 g/dl (32.0-36.0); RED BLOOD COUNT 3.08 M/uL (4.00-6.00); RED CELL DISTRIBUTION WIDTH 19.2 % (11.5-14.5)
[2024-10-11 16:12] LABS: PLATELET COUNT 66 K/uL (150-450)
[2024-10-11 17:04] VITALS: BP 92/50; O2SAT 98
[2024-10-12] VITALS (8 sets, daily range): BP systolic 88–115; BP diastolic 48–66; O2SAT 95–99
[2024-10-12] MEDS ORDERED: 0.9 % SODIUM CHLORIDE 500 ML IV STA (08:29)
[2024-10-12] MEDS ORDERED: NOREPINEPHRINE BITARTRATE 8 MG in DEXTROSE 5 % IN WATER 250 ML IV SCH (10:15)
[2024-10-13] VITALS (16 sets, daily range): BP systolic 81–123; BP diastolic 42–81; O2SAT 93–100
[2024-10-13 08:33] LABS: HEMATOCRIT 30.8 % (36.0-45.00); HEMOGLOBIN 10.4 g/dL (12.0-15.00); MEAN CELL VOLUME 92.7 fL (80.00-100.00); MEAN CORPUSCULAR HEMOGLOBIN 31.4 pg (27.00-32.0); MEAN CORPUSCULAR HGB CONC 33.8 g/dl (32.0-36.0); RED BLOOD COUNT 3.33 M/uL (4.00-6.00); RED CELL DISTRIBUTION WIDTH 20.1 % (11.5-14.5)
[2024-10-13 08:45] LABS: PLATELET COUNT 108 K/uL (150-450)
[2024-10-13 08:47] LABS: ALBUMIN 1.6 gm/dL (3.4-5.0); BILIRUBIN TOTAL 3.08 mg/dL (0.3-1.2); CALCIUM 7.8 mg/dL (8.5-10.1); CREATININE SERUM 1.77 mg/dL (0.55-1.02); GFR 28.53; GLOBULINA 3.5 G/DL (2.4-3.5); PHOSPHOROUS 4.7 mg/dL (2.5-4.9); POTASSIUM 3.65 mEq/L (3.5-5.1); TOTAL PROTEIN 5.1 gm/dL (6.4-8.2)
[2024-10-13] MEDS ORDERED: ALBUMIN HUMAN-25 0.25GM/ML (50ML) VIAL IV SCH (12:16)
[2024-10-13 18:12] LABS: ABG PH 7.452 (7.35-7.45); ABG PO2 84.6 mmHg (80-100); ABG pCO2 27.9 mmHg (35-45); BASE EXCESS -3.4 mmol/l; SaO2 96.8 %; Tco2 19.9 mmol/l
[2024-10-13 19:10] LABS: allen test SATISFACTORY; o2 28 %; puncture site RADIAL LEFT
[2024-10-13] MEDS ORDERED: FUROsemide 20 MG/2 ML VIAL IV SCH (21:00)
[2024-10-14] VITALS (16 sets, daily range): BP systolic 94–138; BP diastolic 50–77; O2SAT 86–100
[2024-10-14] MEDS ORDERED: MIDODRINE HCL 5 MG TABLET PO SCH (17:00)
[2024-10-15] VITALS (16 sets, daily range): BP systolic 28–132; BP diastolic 17–81; O2SAT 86–100
[2024-10-15 08:13] LABS: HEMATOCRIT 28.9 % (36.0-45.00); HEMOGLOBIN 9.7 g/dL (12.0-15.00); MEAN CELL VOLUME 92.6 fL (80.00-100.00); MEAN CORPUSCULAR HEMOGLOBIN 31.3 pg (27.00-32.0); MEAN CORPUSCULAR HGB CONC 33.7 g/dl (32.0-36.0); RED BLOOD COUNT 3.12 M/uL (4.00-6.00); RED CELL DISTRIBUTION WIDTH 20.7 % (11.5-14.5)
[2024-10-15 08:16] LABS: PLATELET COUNT 84 K/uL (150-450)
[2024-10-15 08:53] LABS: INR 1.51
[2024-10-15 09:09] LABS: PARTIAL THROMBOPLASTIN TIME 38.7 SECONDS (22.0-34.0)
[2024-10-15 09:36] LABS: ALBUMIN 2.2 gm/dL (3.4-5.0); BILIRUBIN TOTAL 3.22 mg/dL (0.3-1.2); CALCIUM 8.2 mg/dL (8.5-10.1); CREATININE SERUM 1.53 mg/dL (0.55-1.02); GFR 33.75; GLOBULINA 3.2 G/DL (2.4-3.5); POTASSIUM 3.74 mEq/L (3.5-5.1); TOTAL PROTEIN 5.4 gm/dL (6.4-8.2)
[2024-10-15] MEDS ORDERED: FUROsemide 20 MG/2 ML VIAL IV PRN (11:30)
[2024-10-15] MEDS ORDERED: KETOROLAC TROMETHAMINE 30 MG VIAL ONE (13:22)
[2024-10-15] MEDS ORDERED: KETOROLAC TROMETHAMINE 30 MG VIAL IV NR (13:30)
[2024-10-15 14:37] LABS: PH,URINE 5.5 (5.0-8.0); URINE APPEARANCE Turbid; URINE BILIRRUBIN Small (NEGATIVE); URINE BLOOD Large; URINE COLOR Dark Yellow; URINE GLUCOSE Negative (NEGATIVE); URINE KETONE Trace (NEGATIVE); URINE LEUKOCYTE Large; URINE NITRATE Negative
[2024-10-15 14:42] LABS: URINE CAST 20.62 uL (0.0-1.40); URINE EPITHELIAL CELLS 105.6 uL (0.0-38.8)
[2024-10-15 15:30] LABS: URINE PROTEIN 100 (NEGATIVE); URINE YEAST MANY /hpf
[2024-10-15] MEDS ORDERED: FF) Daptomycin 500 MG/VIAL IV SCH (18:00)
[2024-10-16] VITALS (7 sets, daily range): BP systolic 86–131; BP diastolic 49–79; O2SAT 95–100
[2024-10-16] MEDS ORDERED: MORPHINE SULFATE 2 MG/ML SYRINGE IV PRN (06:30)
[2024-10-16] MEDS ORDERED: MORPHINE SULFATE 2 MG/ML CARTRIDGE IV PRN (07:00)
[2024-10-16 08:06] LABS: HEMATOCRIT 35.3 % (36.0-45.00); HEMOGLOBIN 11.7 g/dL (12.0-15.00); MEAN CELL VOLUME 92.3 fL (80.00-100.00); MEAN CORPUSCULAR HEMOGLOBIN 30.7 pg (27.00-32.0); MEAN CORPUSCULAR HGB CONC 33.2 g/dl (32.0-36.0); RED BLOOD COUNT 3.82 M/uL (4.00-6.00); RED CELL DISTRIBUTION WIDTH 18.2 % (11.5-14.5)
[2024-10-16 08:07] LABS: PLATELET COUNT 94 K/uL (150-450)
[2024-10-16 09:24] LABS: ALBUMIN 2.6 gm/dL (3.4-5.0); BILIRUBIN TOTAL 3.54 mg/dL (0.3-1.2); CALCIUM 8.6 mg/dL (8.5-10.1); CREATININE SERUM 1.3 mg/dL (0.55-1.02); GFR 40.73; GLOBULINA 2.9 G/DL (2.4-3.5); MAGNESIUM 2.2 mg/dL (1.8-2.4); PHOSPHOROUS 3.9 mg/dL (2.5-4.9); POTASSIUM 3.95 mEq/L (3.5-5.1); TOTAL PROTEIN 5.5 gm/dL (6.4-8.2)
[2024-10-16] MEDS ORDERED: VANCOMYCIN HCL 1,000 MG VIAL ONE ×2 (14:35→16:39)
[2024-10-16] MEDS ORDERED: POVIDONE-IODINE 118 ML BOTT TOP ONE (14:36)
[2024-10-16] MEDS ORDERED: ISOPROPYL ALCOHOL 30 ML OUNCE TOP ONE (15:35)
[2024-10-16] MEDS ORDERED: NOREPINEPHRINE BITARTRATE 1 MG/ML AMPUL IV ONE (18:00)
[2024-10-16] MEDS ORDERED: SODIUM BICARBONATE 1 MEQ/ML DISP.SYRIN 50ML IV ONE (22:15)
[2024-10-16] MEDS ORDERED: SODIUM BICARBONATE 50MEQ/50ML VIAL IV ONE (22:18)
[2024-10-16 22:36] LABS: ABG PH 7.445 (7.35-7.45)
[2024-10-16 22:37] LABS: ABG pCO2 27.4 mmHg (35-45); BASE EXCESS -4.1 mmol/l; BICARBONATE 18.4 mmol/l (23-25); Tco2 19.2 mmol/l; allen test SATISFACTORY; o2 100 %; puncture site RADIAL LEFT
[2024-10-16 22:40] LABS: ABG PO2 364.9 mmHg (80-100)
[2024-10-17] VITALS (24 sets, daily range): BP systolic 31–105; BP diastolic 16–80; O2SAT 98–100
[2024-10-17 02:31] LABS: INR 1.56; PARTIAL THROMBOPLASTIN TIME 35.9 SECONDS (22.0-34.0)
[2024-10-17 02:33] LABS: PROTHROMBIN TIME 16.5 SECONDS (9.0-11.5)
[2024-10-17 02:39] LABS: ALBUMIN 2.4 gm/dL (3.4-5.0); BILIRUBIN TOTAL 3.4 mg/dL (0.3-1.2); CALCIUM 8.9 mg/dL (8.5-10.1); CREATININE SERUM 1.49 mg/dL (0.55-1.02); GFR 34.8; GLOBULINA 2.6 G/DL (2.4-3.5); MAGNESIUM 2.3 mg/dL (1.8-2.4); PHOSPHOROUS 4.3 mg/dL (2.5-4.9); POTASSIUM 3.76 mEq/L (3.5-5.1)
[2024-10-17] MEDS ORDERED: PHENYLEPHRINE HCL 10 MG/ML AMPUL ONE (06:30)
[2024-10-17] MEDS ORDERED: PHENYLEPHRINE HCL 20 MG in 0.9 % SODIUM CHLORIDE 250 ML IV SCH (06:30)
[2024-10-17] MEDS ORDERED: NOREPINEPHRINE BITARTRATE 16 MG in DEXTROSE 5 % IN WATER 500 ML IV SCH ×2 (08:15→10:15)
[2024-10-17] MEDS ORDERED: PHENYLEPHRINE HCL 80 MG in 0.9 % SODIUM CHLORIDE 1,000 ML IV SCH (08:15)
[2024-10-17] MEDS ORDERED: TRANEXAMIC ACID 100MG/1ML (1000MG) AMPUL IV ONE (08:30)
[2024-10-17] MEDS ORDERED: EPINEPHRINE HCL/PF 4 MG in DEXTROSE 5 % IN WATER 250 ML IV SCH (08:45)
[2024-10-17] MEDS ORDERED: 0.9 % SODIUM CHLORIDE 500 ML IV ONE (08:45)
[2024-10-17] MEDS ORDERED: VASOPRESSIN 20 UNITS/ML VIAL IV SCH (08:45)
[2024-10-17] MEDS ORDERED: POLYVINYL ALCOHOL 15 ML DROPS OP SCH (09:00)
[2024-10-17] MEDS ORDERED: VASOPRESSIN 40 UNITS in 0.9 % SODIUM CHLORIDE 100 ML IV SCH (09:00)
[2024-10-17] MEDS ORDERED: CHLORHEXIDINE GLUCONATE 15ML BRUSH KIT MM SCH (09:00)
[2024-10-17] MEDS ORDERED: HYDROCORTISONE SODIUM SUCC/PF 100 MG VIAL IV STA (09:48)
[2024-10-17] MEDS ORDERED: SODIUM BICARBONATE 50MEQ/50ML VIAL IV STA (12:43)
[2024-10-17 12:53] LABS: ABG PH 7.397 (7.35-7.45); ABG PO2 163.2 mmHg (80-100); ABG pCO2 24.1 mmHg (35-45); BASE EXCESS -8.2 mmol/l; BICARBONATE 14.5 mmol/l (23-25); SaO2 99.4 %; Tco2 15.2 mmol/l
[2024-10-17 12:54] LABS: o2 70 %
[2024-10-17 12:55] LABS: allen test SATISFACTORY; puncture site RADIAL LEFT
[2024-10-17] MEDS ORDERED: HYDROCORTISONE SODIUM SUCC/PF 50 MG/ML ML IV SCH (17:00)
[2024-10-17 17:53] LABS: HEMATOCRIT 26.3 % (36.0-45.00); MEAN CELL VOLUME 90.5 fL (80.00-100.00); MEAN CORPUSCULAR HGB CONC 33.4 g/dl (32.0-36.0); RED BLOOD COUNT 2.91 M/uL (4.00-6.00)
[2024-10-17 17:54] LABS: MEAN CORPUSCULAR HEMOGLOBIN 30.2 pg (27.00-32.0); PLATELET COUNT 123 K/uL (150-450)
[2024-10-17 17:55] LABS: HEMOGLOBIN 8.8 g/dL (12.0-15.00)
[2024-10-17] MEDS ORDERED: (FF) Daptomycin 50 MG/ML IV SCH (18:00)
[2024-10-17] MEDS ORDERED: FUROsemide 20 MG/2 ML VIAL IV SCH (18:30)
[2024-10-18] VITALS (25 sets, daily range): BP systolic 50–125; BP diastolic 17–76; O2SAT 87–98
[2024-10-18] MEDS ORDERED: PHENYLEPHRINE HCL 80 MG in 0.9 % SODIUM CHLORIDE 1,000 ML IV SCH (06:30)
[2024-10-18 11:00] LABS: ABG PO2 81.2 mmHg (80-100); ABG pCO2 16.2 mmHg (35-45); BASE EXCESS -9.8 mmol/l; SaO2 96.2 %; Tco2 11.5 mmol/l; allen test SATISFACTORY; o2 100 %; puncture site RADIAL RIGHT
[2024-10-18] MEDS ORDERED: METRONIDAZOLE/SODIUM CHLORIDE 100 ML IV SCH ×2 (13:00→17:00)
[2024-10-18] MEDS ORDERED: ALBUMIN HUMAN-25 0.25GM/ML (50ML) VIAL IV SCH (13:00)
[2024-10-18] MEDS ORDERED: SODIUM BICARBONATE 100 MEQ in DEXTROSE 5 % IN WATER 1,000 ML IV SCH (13:00)
[2024-10-18] MEDS ORDERED: CEFTAZIDIME/AVIBACTAM 1.25GM/100ML NSS PB IV SCH (13:00)
[2024-10-18] MEDS ORDERED: SODIUM BICARBONATE 50MEQ/50ML VIAL IV STA (13:05)
[2024-10-18 14:25] LABS: HEMATOCRIT 35.2 % (36.0-45.00); MEAN CELL VOLUME 86.8 fL (80.00-100.00); MEAN CORPUSCULAR HGB CONC 32.7 g/dl (32.0-36.0); RED BLOOD COUNT 4.05 M/uL (4.00-6.00); RED CELL DISTRIBUTION WIDTH 17.7 % (11.5-14.5)
[2024-10-18 14:28] LABS: HEMOGLOBIN 11.5 g/dL (12.0-15.00); MEAN CORPUSCULAR HEMOGLOBIN 28.3 pg (27.00-32.0); PLATELET COUNT 82 K/uL (150-450)
[2024-10-18] MEDS ORDERED: NOREPINEPHRINE BITARTRATE 1 MG/ML AMPUL IV ONE (14:42)
[2024-10-18 15:21] LABS: ALBUMIN 2.3 gm/dL (3.4-5.0); BILIRUBIN TOTAL 6.28 mg/dL (0.3-1.2); CALCIUM 7.9 mg/dL (8.5-10.1); CREATININE SERUM 1.67 mg/dL (0.55-1.02); GFR 30.51; GLOBULINA 2.4 G/DL (2.4-3.5); POTASSIUM 4.37 mEq/L (3.5-5.1); TOTAL PROTEIN 4.7 gm/dL (6.4-8.2)
[2024-10-18] MEDS ORDERED: AMINO ACIDS 4.25 %/DEXTROSE 5% 1,000 ML PERIFERAL SCH (17:00)
[2024-10-19] VITALS: BP 110/75; O2SAT 82
[2024-10-19 02:00] VITALS: BP 94/53; O2SAT 83
[2024-10-19 03:00] VITALS: BP 94/75; O2SAT 82
[2024-10-19 03:37] LABS: HEMATOCRIT 31.7 % (36.0-45.00); HEMOGLOBIN 10.5 g/dL (12.0-15.00); MEAN CELL VOLUME 87.6 fL (80.00-100.00); MEAN CORPUSCULAR HEMOGLOBIN 29.1 pg (27.00-32.0); MEAN CORPUSCULAR HGB CONC 33.2 g/dl (32.0-36.0); RED BLOOD COUNT 3.62 M/uL (4.00-6.00); RED CELL DISTRIBUTION WIDTH 19.5 % (11.5-14.5)
[2024-10-19 03:38] LABS: PLATELET COUNT 60 K/uL (150-450)
[2024-10-19 03:49] LABS: ALBUMIN 2.1 gm/dL (3.4-5.0); BILIRUBIN TOTAL 5.69 mg/dL (0.3-1.2); CALCIUM 7.5 mg/dL (8.5-10.1); CHOL HDL RATIO 3.6 (0-5.0); CREATININE SERUM 1.68 mg/dL (0.55-1.02); GFR 30.3; GLOBULINA 2.1 G/DL (2.4-3.5); POTASSIUM 3.74 mEq/L (3.5-5.1); TOTAL PROTEIN 4.2 gm/dL (6.4-8.2)
[2024-10-19 04:00] VITALS: BP 77/48; O2SAT 76
[2024-10-19] MEDS ORDERED: SODIUM CL 0.9% 250 ML IV.SOLN ONE ×2 (04:10)
[2024-10-19] MEDS ORDERED: PHENYLEPHRINE HCL 10 MG/ML AMPUL ONE (04:12)
[2024-10-19 04:18] LABS: INR 2.57
[2024-10-19 04:37] LABS: PARTIAL THROMBOPLASTIN TIME 43.9 SECONDS (22.0-34.0); PROTHROMBIN TIME 26.1 SECONDS (9.0-11.5)
== END 2024-10-19 06:23 | disposition expired | DRG 570 ==
LOC: ER 10:16 → MEDJ 16:41 → ICU 16:41 → MEDJ 10-09 11:20 → ICU 10-14 21:36
PROVIDERS: General Practice; Internal Medicine; Internal Medicine Infectious Disease; Orthopaedic Surgery; ADMIT Internal Medicine; ATTEND Internal Medicine
PROC: 3E10X8Z Irrigation of Skin and Mucous Membranes using Irrigating Substance (ICD-10-PCS; 2024-10-08)
PROC: 02HV33Z Insertion of Infusion Device into Superior Vena Cava, Percutaneous Approach (ICD-10-PCS; 2024-10-08)
PROC: 8E0ZXY6 Isolation (ICD-10-PCS; 2024-10-10)
PROC: 4A12X4Z Monitoring of Cardiac Electrical Activity, External Approach (ICD-10-PCS; 2024-10-12)
PROC: 30243N1 Transfusion of Nonautologous Red Blood Cells into Central Vein, Percutaneous Approach (ICD-10-PCS; 2024-10-15)
PROC: 0SW904Z Revision of Internal Fixation Device in Right Hip Joint, Open Approach (ICD-10-PCS; 2024-10-16)
PROC: 0JBL0ZZ Excision of Right Upper Leg Subcutaneous Tissue and Fascia, Open Approach (ICD-10-PCS; principal; 2024-10-16 14:30)
PROC: 0BH18EZ Insertion of Endotracheal Airway into Trachea, Via Natural or Artificial Opening Endoscopic (ICD-10-PCS; 2024-10-18)
PROC: 5A1935Z Respiratory Ventilation, Less than 24 Consecutive Hours (ICD-10-PCS; 2024-10-18)
DX: L98.419 Non-pressure chronic ulcer of buttock with unspecified severity (principal); A41.9 Sepsis, unspecified organism; N18.6 End stage renal disease; R18.8 Other ascites; N39.0 Urinary tract infection, site not specified; M86.9 Osteomyelitis, unspecified; E46 Unspecified protein-calorie malnutrition; T81.49XA Infection following a procedure, other surgical site, initial encounter; I12.9 Hypertensive chronic kidney disease with stage 1 through stage 4 chronic kidney disease, or unspecified chronic kidney disease; E11.22 Type 2 diabetes mellitus with diabetic chronic kidney disease; N18.32 Chronic kidney disease, stage 3b; Z79.4 Long term (current) use of insulin; L94.2 Calcinosis cutis; D69.6 Thrombocytopenia, unspecified; L89.159 Pressure ulcer of sacral region, unspecified stage; E66.01 Morbid (severe) obesity due to excess calories; M81.0 Age-related osteoporosis without current pathological fracture; B96.1 Klebsiella pneumoniae [K. pneumoniae] as the cause of diseases classified elsewhere; B96.4 Proteus (mirabilis) (morganii) as the cause of diseases classified elsewhere; B96.20 Unspecified Escherichia coli [E. coli] as the cause of diseases classified elsewhere